=== PATIENT | male | born 1945 | race Two or more races ===

== ENCOUNTER 2018-02-05 13:19 | Inpatient (IN) | payer OTHER ==
[~2018-02-05] VITALS: Ht 172.7 cm; Wt 90.7 kg
[2018-02-05] MEDS ORDERED: JANUMET 50-5001 EACH PO (13:44)
[2018-02-05] MEDS ORDERED: LOTREL 5-20 MG1 CAP PO (13:44)
[2018-02-05] MEDS ORDERED: LIPITOR40 MG PO (13:44)
== END 2018-02-12 10:28 | disposition home or self-care (01) | DRG 661 ==
LOC: SURG 02-10 06:50 → O/R 02-10 06:50 → CIR.AMB 02-10 12:24 → EDSTATUS 02-10 13:11 → O/R 02-10 13:18 → SURG 02-10 17:49
PROVIDERS: Urology
PROC: BT1FZZZ Fluoroscopy of Left Kidney, Ureter and Bladder (ICD-10-PCS; 2018-02-10)
PROC: 0TC18ZZ Extirpation of Matter from Left Kidney, Via Natural or Artificial Opening Endoscopic (ICD-10-PCS; principal; 2018-02-10 07:00)
PROC: BT12ZZZ Fluoroscopy of Left Kidney (ICD-10-PCS; 2018-02-12)
DX: N20.0 Calculus of kidney (principal); I10 Essential (primary) hypertension; E11.9 Type 2 diabetes mellitus without complications; E78.00 Pure hypercholesterolemia, unspecified